=== PATIENT | female | born 1975 | race Native Hawaiian/Other Pacific Islander ===

== ENCOUNTER 2016-12-03 11:41 | Emergency (ER) | payer OTHER ==
[~2016-12-03] VITALS: Ht 160 cm; Wt 63.5 kg
[~2016-12-03 11:41] MED LIST: ALBUSOL IN; ALPR0.2566 PO; AMBIEN CR6.25 MG PO; ANUSOL-HC2.5 % RE; ARMOUR THYROID60 MG PO; AZIT250T3 PO; BENZONATATE200 MG PO; CHLOSUS43 PO; CODEINE/APAP1 TA1 PO; DICY20TA34 PO; EDLUAR10 MG PO; LEVO0.0218 PO; LEVO500T PO; MEDROL DOSEPAK4 MG PO; NEURONTIN800 MG PO; PROGESTERONE200 MG PO; PROMETHAZINE25 MG PO; PROMSYP53 PO; QNASL80 MCG; Z-PAK PO; ZANAFLEX6 MG PO; ZANTAC300 MG PO; ZOFRAN ODT4 MG PO; ZOLP10TA2 PO
[2016-12-03 11:52] VITALS: TEMP 98.1
[2016-12-03 14:07] LABS: PLATELET COUNT 195 K/uL (152-353)
[2016-12-03 14:17] LABS: POTASSIUM 4.7 mmol/L (3.6-5.2); SODIUM 140 mmol/L (136-145)
[2016-12-03 17:05] VITALS: BP 118/78
== END 2016-12-03 17:00 | disposition home or self-care (01) ==
LOC: ED 11:41
PROVIDERS: Specialist
DX: E86.0 Dehydration (principal); R63.0 Anorexia; R50.9 Fever, unspecified; R51 Headache; B34.9 Viral infection, unspecified; R31.9 Hematuria, unspecified
CPT/HCPCS: 80048; 81000; 85027; 87804; 96365; 96375; 99284; J1885; J2175; J2550

== ENCOUNTER 2016-12-05 10:52 | Observation (INO) | payer OTHER ==
[~2016-12-05] VITALS: Ht 160 cm; Wt 66.7 kg
[2016-12-05 14:08] VITALS: BP 137/82; TEMP 98.2; Ht 160 cm; Wt 66.7 kg
[2016-12-05 15:09] LABS: PLATELET COUNT 197 K/uL (152-353)
[2016-12-05 15:21] LABS: POTASSIUM 3.8 mmol/L (3.6-5.2); SODIUM 135 mmol/L (136-145)
[2016-12-05 20:00] VITALS: BP 128/78; TEMP 98.5
[2016-12-06] VITALS: BP 113/69; TEMP 98.1
[2016-12-06 04:00] VITALS: BP 121/72; TEMP 98.1
[2016-12-06 06:33] LABS: PLATELET COUNT 172 K/uL (152-353)
[2016-12-06 06:48] LABS: POTASSIUM 4.3 mmol/L (3.6-5.2); SODIUM 137 mmol/L (136-145)
[2016-12-06 12:00] VITALS: BP 136/85; TEMP 98.8
[2016-12-06 16:30] VITALS: BP 125/59; TEMP 99
[2016-12-06 20:00] VITALS: BP 127/64; TEMP 97.9
[2016-12-07] VITALS: BP 142/73; TEMP 98.8
[2016-12-07 04:00] VITALS: BP 136/73; TEMP 98.9
[2016-12-07 05:18] LABS: PLATELET COUNT 163 K/uL (152-353)
[2016-12-07 05:23] LABS: POTASSIUM 3.4 mmol/L (3.6-5.2); SODIUM 138 mmol/L (136-145)
[2016-12-07 08:00] VITALS: BP 130/89; TEMP 98.5
== END 2016-12-07 11:15 | disposition home or self-care (01) ==
LOC: MED/SURG 10:52
PROVIDERS: ADMIT Nurse Practitioner
DX: E86.0 Dehydration (principal); R50.9 Fever, unspecified; K52.89 Other specified noninfective gastroenteritis and colitis; R51 Headache; J32.8 Other chronic sinusitis
CPT/HCPCS: 36415; 80048; 80053; 81000; 83735; 85027; 87040; 87804; 96360; 96361; 96365; 96367; 96375; 99220; 99284; G0378; G0379; J1885; J2060; J2175; J2550

== ENCOUNTER 2017-05-04 19:53 | Emergency (ER) | payer OTHER ==
[~2017-05-04] VITALS: Ht 160 cm; Wt 60.3 kg
[2017-05-04 21:24] LABS: PLATELET COUNT 214 K/uL (152-353); POTASSIUM 3.5 mmol/L (3.6-5.2)
[2017-05-04 22:29] VITALS: BP 119/80; TEMP 98
== END 2017-05-04 22:30 | disposition home or self-care (01) ==
LOC: ED 19:53
PROVIDERS: Specialist
DX: E86.9 Volume depletion, unspecified (principal)
CPT/HCPCS: 36415; 80048; 85027; 96365; 99284; J3411; J3475; J3490

== ENCOUNTER 2018-06-19 09:04 | Outpatient (CLI) | payer OTHER | END 2018-06-19 19:10 | disposition home or self-care (01) | LOC: CT 09:04 | DX: R10.32 Left lower quadrant pain (principal) | CPT/HCPCS: 36415; 82565; 84520; Q9963 ==

== ENCOUNTER 2018-10-13 12:59 | Emergency (ER) | payer OTHER ==
[~2018-10-13] VITALS: Ht 160 cm; Wt 54.4 kg
[2018-10-13 15:39] VITALS: BP 119/83; TEMP 98.1
== END 2018-10-13 15:39 | disposition home or self-care (01) ==
LOC: ED 12:59
DX: S63.92XA Sprain of unspecified part of left wrist and hand, initial encounter (principal); S53.402A Unspecified sprain of left elbow, initial encounter; S73.101A Unspecified sprain of right hip, initial encounter; W18.09XA Striking against other object with subsequent fall, initial encounter; Y92.098 Other place in other non-institutional residence as the place of occurrence of the external cause
CPT/HCPCS: 96372; 96374; 96375; 99284; J1200; J1885; J2270; J2360; J2405

== ENCOUNTER 2019-01-29 10:34 | Emergency (ER) | payer OTHER ==
[~2019-01-29] VITALS: Ht 160 cm; Wt 54.4 kg
[2019-01-29 11:14] LABS: PLATELET COUNT 223 K/uL (152-353)
[2019-01-29 11:22] LABS: POTASSIUM 3.3 mmol/L (3.6-5.2)
[2019-01-29 13:47] VITALS: BP 132/76; TEMP 98.1
== END 2019-01-29 13:47 | disposition home or self-care (01) ==
LOC: ED 10:34
PROVIDERS: Emergency Medicine
DX: R42 Dizziness and giddiness (principal); E87.6 Hypokalemia
CPT/HCPCS: 80053; 81000; 85027; 93005; 96360; 96361; 99284

== ENCOUNTER 2019-09-04 11:52 | Emergency (ER) | payer OTHER ==
[~2019-09-04] VITALS: Ht 160 cm; Wt 54.4 kg
[2019-09-04 12:35] LABS: PLATELET COUNT 223 K/uL (152-353)
[2019-09-04 12:44] LABS: POTASSIUM 3.2 mmol/L (3.6-5.2); SODIUM 138 mmol/L (136-145)
[2019-09-04 12:47] LABS: PARTIAL THROMBOPLASTIN TIME 24.1 SECONDS (24.5-33.6)
[2019-09-04 13:25] VITALS: BP 133/81; TEMP 99
== END 2019-09-04 13:25 | disposition home or self-care (01) ==
LOC: ED 11:52
PROVIDERS: Hospitalist
DX: U07.1 COVID-19 (principal); R19.7 Diarrhea, unspecified; E87.6 Hypokalemia
CPT/HCPCS: 36415; 80053; 82550; 83880; 84484; 85027; 85610; 85730; 93005; 96360; 96375; 99284; J2405

== ENCOUNTER 2019-10-30 20:37 | Emergency (ER) | payer OTHER ==
[~2019-10-30] VITALS: Ht 160 cm; Wt 63.5 kg
[2019-10-30 21:41] LABS: PLATELET COUNT 141 K/uL (152-353)
[2019-10-30 21:47] LABS: POTASSIUM 4.1 mmol/L (3.6-5.2)
[2019-10-30 21:54] LABS: PARTIAL THROMBOPLASTIN TIME 24.7 SECONDS (24.5-33.6)
[2019-10-30 23:46] VITALS: BP 149/74; TEMP 98.2
== END 2019-10-30 23:57 | disposition short-term general hospital (02) ==
LOC: ED 20:37
PROVIDERS: Hospitalist
DX: K56.699 Other intestinal obstruction unspecified as to partial versus complete obstruction (principal); K56.7 Ileus, unspecified; R10.31 Right lower quadrant pain; R11.2 Nausea with vomiting, unspecified
CPT/HCPCS: 43754; 80048; 81000; 85027; 85610; 85730; 96360; 96375; 96376; 99285; J1170; J1885; J2405; J2765

== ENCOUNTER 2019-12-04 09:53 | Outpatient (CLI) | payer OTHER | END 2019-12-04 23:12 | disposition home or self-care (01) | LOC: LABW 09:53 | DX: A04.72 Enterocolitis due to Clostridium difficile, not specified as recurrent (principal) | CPT/HCPCS: 87324; 87449 ==

== ENCOUNTER 2019-12-26 14:45 | Emergency (ER) | payer OTHER ==
[~2019-12-26] VITALS: Ht 160 cm; Wt 64.9 kg
[2019-12-26 16:52] LABS: PLATELET COUNT 255 K/uL (152-353)
[2019-12-26 17:02] LABS: POTASSIUM 2.9 mmol/L (3.6-5.2)
[2019-12-26 22:10] VITALS: BP 121/83; TEMP 98.5
== END 2019-12-26 22:10 | disposition home or self-care (01) ==
LOC: ED 14:45
PROVIDERS: Family Medicine
DX: R10.84 Generalized abdominal pain (principal); K59.09 Other constipation; E87.6 Hypokalemia; Z98.890 Other specified postprocedural states
CPT/HCPCS: 36415; 80053; 81000; 85027; 96374; 96375; 96376; 99284; J2175; J2405; J2550; Q9963

== ENCOUNTER 2020-02-27 19:30 | Emergency (ER) | payer OTHER ==
[~2020-02-27] VITALS: Ht 160 cm; Wt 59.0 kg
[2020-02-27 19:30] VITALS: TEMP 98.1
[2020-02-27 20:29] LABS: PLATELET COUNT 261 K/uL (152-353)
[2020-02-27 20:34] LABS: POTASSIUM 2.9 mmol/L (3.6-5.2)
[2020-02-27 20:37] LABS: PARTIAL THROMBOPLASTIN TIME 19.6 SECONDS (24.5-33.6)
[2020-02-27 22:07] VITALS: BP 135/81
== END 2020-02-27 22:15 | disposition home or self-care (01) ==
LOC: ED 19:41
PROVIDERS: Family Medicine
DX: E87.6 Hypokalemia (principal); M62.838 Other muscle spasm; Z03.818 Encounter for observation for suspected exposure to other biological agents ruled out; Z86.19 Personal history of other infectious and parasitic diseases
CPT/HCPCS: 36415; 80053; 80307; 81000; 85027; 85610; 85730; 87635; 99284; U0003

== ENCOUNTER 2020-05-13 09:32 | Observation (INO) | payer OTHER ==
[~2020-05-13] VITALS: Ht 160 cm; Wt 66.9 kg
[2020-05-13 10:34] LABS: PLATELET COUNT 193 K/uL (152-353)
[2020-05-13 10:50] LABS: POTASSIUM 3.3 mmol/L (3.6-5.2)
[2020-05-13 10:52] LABS: PARTIAL THROMBOPLASTIN TIME 24.6 SECONDS (24.5-33.6)
[2020-05-13 14:34] VITALS: BP 122/81; TEMP 98.6; Ht 160 cm; Wt 66.9 kg
[2020-05-13] MEDS ORDERED: ARMOUR THYROID120 MG PO (14:58)
[2020-05-13] MEDS ORDERED: TIZANIDINE HYDRO4 MG PO (14:59)
[2020-05-13] MEDS ORDERED: CLON1TAB18 PO (15:00)
[2020-05-13] MEDS ORDERED: LINZESS145 MCG PO (15:02)
[2020-05-13] MEDS ORDERED: PROAIR HFA108 MCG/AC INH (15:05)
[2020-05-13] MEDS ORDERED: POTASSIUM CHLO10 MEQ PO (15:06)
[2020-05-13] MEDS ORDERED: AMBIEN5 MG PO (15:08)
[2020-05-13] MEDS ORDERED: HYDR25TA60 PO (15:09)
[2020-05-13] MEDS ORDERED: PROGESTERONE200 MG PO (15:10)
[2020-05-13 16:00] VITALS: BP 97/63; TEMP 98.7
[2020-05-13 19:56] VITALS: BP 109/64; TEMP 98.1
[2020-05-14] VITALS: BP 98/60; TEMP 98.3
[2020-05-14 04:00] VITALS: BP 100/56; TEMP 97.7
[2020-05-14 05:18] LABS: PLATELET COUNT 156 K/uL (152-353)
[2020-05-14 05:40] LABS: POTASSIUM 3.2 mmol/L (3.6-5.2)
[2020-05-14 08:00] VITALS: BP 103/54; TEMP 97.6
[2020-05-14 12:00] VITALS: BP 81/41; TEMP 98.3
--- NOTE | 2020-05-14 12:25 | NUR ---
REVIEWED DISCHARGE INSTRUCTIONS, NEW PRESCRIPTION AND FOLLOW UP APPOINTMENT WITH PATIENT. PATIENT V/O UNDERSTANDING AND DENIES ANY NEEDS OR C/O AT THIS TIME. PATIENT V/O SHE NOTIFIED HER OF HER DISCHARGE. INSTRUCTED PATIENT TO CALL NURSES STATION ONCE ARRIVES AND WILL TRANSPORT HER TO POV, PT V/O UNDERSTANDING.
--- NOTE | 2020-05-14 12:35 | NUR ---
PATIENT'S AT BEDSIDE TO TRANSPORT PATIENT HOME. PATIENT'S IV D/C'D AT THIS TIME WITH TIP IN TACT. PATIENT D/C'D FROM FACILITY AT THIS TIME TO POV VIA WHEELCHAIR. ASSISTED PATIENT WITH TRANSFERRING TO POV WITHOUT DIFFICULTY. PATIENT DENIES ANY PAIN, NEEDS OR C/O AT THIS TIME. NAD NOTED WIT PATIENT.
== END 2020-05-14 12:38 | disposition home or self-care (01) ==
LOC: MED/SURG 09:32
PROVIDERS: ADMIT Internal Medicine Endocrinology, Diabetes & Metabolism; ATTEND Internal Medicine Endocrinology, Diabetes & Metabolism
DX: J01.00 Acute maxillary sinusitis, unspecified (principal); J20.9 Acute bronchitis, unspecified; E03.8 Other specified hypothyroidism; G47.09 Other insomnia; R94.5 Abnormal results of liver function studies
CPT/HCPCS: 36415; 80053; 83735; 83880; 85027; 85610; 85730; 87635; 96365; 96366; 96367; 96375; 99220; G0378; G0379; J0456; J0696; J1885; U0003

== ENCOUNTER 2020-05-25 07:19 | Inpatient (IN) | payer OTHER ==
[2020-05-25] VITALS (9 sets, daily range): BP systolic 73–144; BP diastolic 43–676; TEMP 97–98.4; Ht 160 cm; Wt 60.8 kg
[~2020-05-25] VITALS: Ht 160 cm; Wt 60.8 kg
[~2020-05-25 07:19] MED LIST changes: +AMBIEN5 MG PO; +ARMOUR THYROID120 MG PO; +CLON1TAB18 PO; +HYDR25TA60 PO; +LINZESS145 MCG PO; +POTASSIUM CHLO10 MEQ PO; +PROAIR HFA108 MCG/AC INH; +TIZANIDINE HYDRO4 MG PO
[2020-05-25 08:28] LABS: PLATELET COUNT 329 K/uL (152-353)
[2020-05-25 08:34] LABS: POTASSIUM 3.4 mmol/L (3.6-5.2); SODIUM 136 mmol/L (136-145)
[2020-05-25 08:45] LABS: PARTIAL THROMBOPLASTIN TIME 24.9 SECONDS (24.5-33.6)
[2020-05-26 00:07] VITALS: BP 136/83; TEMP 97.8
[2020-05-26 04:14] VITALS: BP 125/72; TEMP 98.1
[2020-05-26 08:00] VITALS: BP 140/75; TEMP 98.3
[2020-05-26 12:00] VITALS: BP 132/77; TEMP 98.2
[2020-05-26 16:00] VITALS: BP 139/82; TEMP 98.4
[2020-05-26 20:00] VITALS: BP 143/80; TEMP 98.1
[2020-05-27] VITALS: BP 128/67; TEMP 98.2
[2020-05-27 04:00] VITALS: BP 123/74; TEMP 98.4
[2020-05-27 04:33] LABS: PLATELET COUNT 237 K/uL (152-353)
[2020-05-27 04:58] LABS: POTASSIUM 3.3 mmol/L (3.6-5.2)
[2020-05-27 08:00] VITALS: BP 130/76; TEMP 97.8
[2020-05-27 12:00] VITALS: BP 119/74; TEMP 98.4
[2020-05-27 16:00] VITALS: BP 132/84; TEMP 98.3
[2020-05-27 20:00] VITALS: BP 129/80; TEMP 98.3
[2020-05-28] VITALS: BP 114/81; TEMP 98.3
[2020-05-28 04:00] VITALS: BP 118/75; TEMP 98.3
[2020-05-28 05:49] LABS: PLATELET COUNT 260 K/uL (152-353)
[2020-05-28 06:00] LABS: POTASSIUM 2.7 mmol/L (3.6-5.2)
[2020-05-28 08:00] VITALS: BP 125/82; TEMP 97.6
[2020-05-28 12:00] VITALS: BP 116/87; TEMP 98.6
== END 2020-05-28 12:10 | disposition home or self-care (01) | DRG 195 ==
LOC: ED 07:19 → MED/SURG 15:55
PROVIDERS: Hospitalist; Internal Medicine Endocrinology, Diabetes & Metabolism; ADMIT Family Medicine; ATTEND Internal Medicine
DX: J18.8 Other pneumonia, unspecified organism (principal); I95.89 Other hypotension; E03.8 Other specified hypothyroidism; D72.828 Other elevated white blood cell count; F41.8 Other specified anxiety disorders; K59.09 Other constipation
CPT/HCPCS: 36415; 80048; 80053; 80307; 81000; 82550; 83605; 83880; 84484; 85027; 85610; 85730; 87040; 87502; 87635; 87651; 93005; 94760; 96365; 96366; 96367; 96372; 96375; 99284; J0456; J0696; J1100; J1650; J1885; J2060; J2405; J3490; Q9963; U0003

== ENCOUNTER 2020-07-09 09:12 | Outpatient (CLI) | payer OTHER | END 2020-07-09 19:56 | disposition home or self-care (01) | LOC: LAB 09:12 | PROVIDERS: ATTEND Internal Medicine | DX: Z01.818 Encounter for other preprocedural examination (principal); Z11.52 Encounter for screening for COVID-19 | CPT/HCPCS: 87635; U0003 ==

== ENCOUNTER 2020-09-27 16:28 | Outpatient (CLI) | payer OTHER | END 2020-09-27 22:05 | disposition home or self-care (01) | LOC: RAD 16:28 | PROVIDERS: ATTEND Nurse Practitioner Family | DX: R50.9 Fever, unspecified (principal); U07.1 COVID-19; R06.02 Shortness of breath; R06.2 Wheezing ==

== ENCOUNTER 2020-10-06 13:12 | Outpatient (CLI) | payer OTHER | END 2020-10-06 23:00 | disposition home or self-care (01) | LOC: CT 13:12 | PROVIDERS: ATTEND Internal Medicine | DX: R91.1 Solitary pulmonary nodule (principal) | CPT/HCPCS: Q9963 ==

== ENCOUNTER 2021-01-28 11:23 | Emergency (ER) | payer OTHER ==
[~2021-01-28] VITALS: Ht 160 cm; Wt 60.8 kg
[2021-01-28 11:36] VITALS: BP 95/57; TEMP 97
== END 2021-01-28 12:15 | disposition home or self-care (01) ==
LOC: ED 11:23
PROC: 0HQEXZZ Repair Left Lower Arm Skin, External Approach (ICD-10-PCS; principal; 2021-01-28)
DX: S61.512A Laceration without foreign body of left wrist, initial encounter (principal); S60.812A Abrasion of left wrist, initial encounter; S60.512A Abrasion of left hand, initial encounter; W01.0XXA Fall on same level from slipping, tripping and stumbling without subsequent striking against object, initial encounter; Y92.89 Other specified places as the place of occurrence of the external cause
CPT/HCPCS: 96372; 99283; J1885